=== PATIENT | male | born 1970 | race Caucasian/White ===

== ENCOUNTER 2020-02-29 06:37 | Emergency (ER) | payer MEDICAID, OTHER ==
[~2020-02-29] VITALS: Ht 170.2 cm; Wt 81.8 kg
[~2020-02-29 06:37] MED LIST: HYDR-4383 PO
--- NOTE | 2020-02-29 07:09 | NUR ---
DR HICKMAN MADE AWARE OF PATIENT STATUS, HR 114, SPO2 93% ON MD ROCIO TO ENTER ORDERS.
[2020-02-29] MEDS ORDERED: methylPREDNISolone sod succ 125mg/2ml vial IV ONE (07:10)
[2020-02-29] MEDS ORDERED: ipratropium/albuterol 3ml nebule NEB ONE (07:10)
--- NOTE | 2020-02-29 07:25 | NUR ---
RT AT BEDSIDE.
[2020-02-29 07:39] LABS: BASOPHILS # (AUTO) 0.1 X10'3 (0-0.2); BASOPHILS % (AUTO) 0.8 % (0-1); EOSINOPHILS # (AUTO) 0.2 X10'3 (0-0.9); EOSINOPHILS % (AUTO) 1.8 % (0-6); HEMATOCRIT 47.8 % (42.0-52.0); HEMOGLOBIN 16.1 g/dl (14.0-17.9); LYMPHOCYTES # (AUTO) 1.8 X10'3 (1.1-4.8); LYMPHOCYTES % (AUTO) 16.8 % (21-51); MEAN CORPUSCULAR HEMOGLOBIN 30.5 PG (27.0-31.0); MEAN CORPUSCULAR HGB CONC 33.7 g/dL (33.0-36.5); MEAN CORPUSCULAR VOLUME 90.5 FL (78-98); MEAN PLATELET VOLUME 8.5 FL (7.4-10.4); MONOCYTES % (AUTO) 9.5 % (2-12); NEUTROPHILS # (AUTO) 7.8 X10'3 (1.8-7.7); NEUTROPHILS % (AUTO) 71.1 % (42-75); PLATELET COUNT 272 X10'3 (140-440); RED BLOOD COUNT 5.29 X10'6 (4.70-6.10); RED CELL DISTRIBUTION WIDTH 13.8 % (11.5-14.5)
[2020-02-29 07:55] LABS: ALANINE AMINOTRANSFERASE 37 U/L (12-78); ALBUMIN 3.9 G/DL (3.4-5.0); ALBUMIN/GLOBULIN RATIO 1.1 (1.1-1.5); ALKALINE PHOSPHATASE 76 IU/L (46-116); ANION GAP 8 (8-16); ASPARTATE AMINO TRANSFERASE 38 U/L (10-37); BLOOD UREA NITROGEN 16 MG/DL (7-18); BUN/CREATININE RATIO 21.1 (5.4-32.0); CALCIUM 8.9 MG/DL (8.5-10.1); CHLORIDE 105 MMOL/L (99-107); CREATININE 0.76 MG/DL (0.60-1.10); GLUCOSE 107 MG/DL (70-104); POTASSIUM 3.6 MMOL/L (3.5-5.1); SODIUM 140 MMOL/L (135-145); TOTAL CARBON DIOXIDE 26.9 MMOL/L (24-32); TOTAL PROTEIN 7.3 G/DL (6.4-8.2); eGFR > 90 ML/MIN
[2020-02-29] MEDS ORDERED: ALBU8.5H8 INH (09:01)
[2020-02-29] MEDS ORDERED: PRED20TA PO (09:01)
[2020-02-29 09:04] VITALS: BP 146/90
== END 2020-02-29 09:08 | disposition home or self-care (01) ==
LOC: ER 06:37
DX: J44.1 Chronic obstructive pulmonary disease with (acute) exacerbation (principal); F12.90 Cannabis use, unspecified, uncomplicated; Z98.890 Other specified postprocedural states; Z87.442 Personal history of urinary calculi; Z79.899 Other long term (current) drug therapy
CPT/HCPCS: 36415; 71045; 80053; 83880; 85025; 93005; 94640; 96374; 99285; J2930; 84484; 94760

== ENCOUNTER 2020-03-02 03:01 | Emergency (ER) | payer MEDICAID ==
[~2020-03-02] VITALS: Ht 167.6 cm; Wt 81.8 kg
[~2020-03-02 03:01] MED LIST changes: +ALBU8.5H8 INH; +PRED20TA PO
--- NOTE | 2020-03-02 03:08 | NUR ---
TAUGHT THE PT HOW TO PURSE LIP BREATH. HE IS PRACTICING IT NOW.
[2020-03-02] MEDS ORDERED: ipratropium 0.5 MG/2.5ML nebule IH ONE (04:50)
[2020-03-02] MEDS ORDERED: albuterol 2.5 MG/3 ML nebule CONTNEB PRN (04:50)
[2020-03-02] MEDS ORDERED: normal saline 1000ML IV soln IVB ONE (04:50)
[2020-03-02] MEDS ORDERED: methylPREDNISolone sod succ 125mg/2ml vial IV ONE (04:50)
[2020-03-02 06:56] VITALS: BP 112/76
== END 2020-03-02 06:58 | disposition home or self-care (01) ==
LOC: ER 03:02
DX: J44.1 Chronic obstructive pulmonary disease with (acute) exacerbation (principal); F17.200 Nicotine dependence, unspecified, uncomplicated; F12.90 Cannabis use, unspecified, uncomplicated; Z79.899 Other long term (current) drug therapy
CPT/HCPCS: 94644; 96374; 99285; J2930; J7030; 94760

== ENCOUNTER 2020-03-07 19:25 | Emergency (ER) | payer MEDICAID ==
[~2020-03-07] VITALS: Ht 167.6 cm; Wt 81.8 kg
[~2020-03-07 19:25] MED LIST changes: -PRED20TA PO
[2020-03-07] MEDS ORDERED: methylPREDNISolone sod succ 125mg/2ml vial IV ONE (19:40)
[2020-03-07] MEDS ORDERED: albuterol 2.5 MG/3 ML nebule NEB ONE ×2 (19:40→20:50)
[2020-03-07 19:59] LABS: BASOPHILS # (AUTO) 0.2 X10'3 (0-0.2); BASOPHILS % (AUTO) 1.5 % (0-1); EOSINOPHILS # (AUTO) 0.3 X10'3 (0-0.9); EOSINOPHILS % (AUTO) 2.6 % (0-6); HEMATOCRIT 49.9 % (42.0-52.0); HEMOGLOBIN 16.9 g/dl (14.0-17.9); LYMPHOCYTES # (AUTO) 2.8 X10'3 (1.1-4.8); LYMPHOCYTES % (AUTO) 24.1 % (21-51); MEAN CORPUSCULAR HGB CONC 33.9 g/dL (33.0-36.5); MEAN CORPUSCULAR VOLUME 91.4 FL (78-98); MEAN PLATELET VOLUME 8.4 FL (7.4-10.4); MONOCYTES # (AUTO) 1.2 X10'3 (0-0.9); MONOCYTES % (AUTO) 9.8 % (2-12); NEUTROPHILS # (AUTO) 7.3 X10'3 (1.8-7.7); PLATELET COUNT 319 X10'3 (140-440); RED BLOOD COUNT 5.46 X10'6 (4.70-6.10); RED CELL DISTRIBUTION WIDTH 14.4 % (11.5-14.5); WHITE BLOOD COUNT 11.7 X10'3 (4.5-11.0)
[2020-03-07 20:15] LABS: ALANINE AMINOTRANSFERASE 30 U/L (12-78); ALBUMIN 3.7 G/DL (3.4-5.0); ALBUMIN/GLOBULIN RATIO 1.1 (1.1-1.5); ALKALINE PHOSPHATASE 80 IU/L (46-116); ANION GAP 5 (8-16); ASPARTATE AMINO TRANSFERASE 14 U/L (10-37); BILIRUBIN,TOTAL 0.3 MG/DL (0.1-1.0); BLOOD UREA NITROGEN 12 MG/DL (7-18); BUN/CREATININE RATIO 13.6 (5.4-32.0); CALCIUM 9.1 MG/DL (8.5-10.1); CHLORIDE 107 MMOL/L (99-107); CREATININE 0.88 MG/DL (0.60-1.10); GLUCOSE 103 MG/DL (70-104); POTASSIUM 4.1 MMOL/L (3.5-5.1); SODIUM 143 MMOL/L (135-145); TOTAL CARBON DIOXIDE 31.4 MMOL/L (24-32); TOTAL PROTEIN 7.1 G/DL (6.4-8.2); eGFR > 90 ML/MIN
[2020-03-07] MEDS ORDERED: acetaminophen 325mg tablet PO ONE (20:50)
[2020-03-07] MEDS ORDERED: magnesium 2GM in 50ml NS 50 ML IV ONE (21:25)
--- NOTE | 2020-03-07 22:43 | NUR ---
TRIALED PATIENT ON ROOM AIR, O2 DECREAED TO 89%. RETURNED O2 TO 2LNC O2 92%. PROVIDER AWARE
[2020-03-08] MEDS ORDERED: ALBU8HFA PO (00:45)
[2020-03-08] MEDS ORDERED: PRED20TA PO (00:45)
[2020-03-08] MEDS ORDERED: FLUT1DIS20 INH (00:45)
[2020-03-08] MEDS ORDERED: INHA1SPA24 (00:46)
[2020-03-08 01:01] VITALS: BP 137/87
--- NOTE | 2020-03-08 12:00 | NUR ---
Patient called requesting that we call in his prescriptions that he was prescribed this morning prior to discharge. He stated that the person that would be picking up his prescriptions wouldn't drop of the RX, they would just pick them up. Called in prescriptions to [facility] on [address] Patient is aware and voice mail was left for pharmacist.
== END 2020-03-08 01:03 | disposition home or self-care (01) ==
LOC: ER 19:26
DX: J45.901 Unspecified asthma with (acute) exacerbation (principal); F17.200 Nicotine dependence, unspecified, uncomplicated; F12.90 Cannabis use, unspecified, uncomplicated; Z87.442 Personal history of urinary calculi; Z98.890 Other specified postprocedural states; Z79.899 Other long term (current) drug therapy
CPT/HCPCS: 36415; 71045; 80053; 83880; 84484; 85025; 93005; 94640; 96365; 96375; 99285; J2930; J3475; 94760